=== PATIENT | female | born 2005 | race Caucasian/White ===

== ENCOUNTER 2025-10-27 15:40 | Emergency (ER) | payer OTHER, SELFPAY ==
--- OUTSIDE RECORDS SUMMARY | 2025-10-26 20:37 | XMS_ITS | Continuity of Care Document ---
Author Organization [facility] Address Unknown Care Team Providers Care Sheet Rock Sander Name Role Phone Jadiel Garza PA-C Primary Care Physician Encounter [facility] [id number] Date(s): 10/26/25 - 10/26/[address] [address] Encounter Diagnosis Vaginal bleeding in patient at less than 20 weeks gestation(Discharge Diagnosis) - 10/26/25 Discharge Disposition: Home Attending Physician: Ron Torres MD Admitting Physician: Ron Torres MD Encounter Type: Emergency Allergies, Adverse Reactions, Alerts No Known Allergies Treatment Plan Extracted from:Title:Supervising Physician Addendum *EDAuthor:Ron Torres MD Date:10/26/25 Impression and Plan Diagnosis Vaginal bleeding in patient at less than 20 weeks gestation (AIE63-FN O20.9, Discharge, Medical) Plan Condition: Stable. Disposition: Discharged: Time 10/26/2025 20:28:00, to home. Patient was given the following educational materials: Bleeding During Your First Trimester: What to Know, Ambw-ac-Iurw, Bleeding During Your First Trimester: What to Know, Upeq-kt-Gzuf. Follow up with: ; Follow up with specialist Within 2 to 4 days Reviewed discharge care instruction. Continue with therapy as outlined by Dr. Torres. Contact OB for follow-up. Return to ER for any worsening symptoms especially any symptom that concerns you. . Counseled: Patient, Regarding diagnosis, Regarding diagnostic results, Regarding treatment plan, Regarding prescription, Patient indicated understanding of instructions. Extracted from:Title:ED Provider NoteAuthor:Noni Jenkins FNPDate: 10/26/25 Orders: ABORh, Blood, Stat collect, 10/26/25 19:29:00 EST, Stop date 10/26/25 19:29:00 EST, Lab Collect, (Ordered) Antibody Screen Gel, Blood, 10/26/25 19:29:00 EST, Stat collect, Stop date 10/26/25 19:29:00 EST, Lab Collect, (Ordered) Extra Blue, Blood, Collected, Stat collect, 10/26/25 19:50:23 EST, by NEPTALI, Stop date 10/26/2519:50:00 EST, Lab Collect, Venous Draw, Yes, (Ordered) Test Serum 1, Blood, Stat collect, 10/26/25 19:29:00 EST, Stop date 10/26/25 19:29:00 EST, Lab Collect, (Ordered) RhIG., Blood, 10/26/25 19:29:00 EST, Stat collect, Stop date 10/26/25 19:29:00 EST, Lab Collect, Hold Until Collected, (Ordered) Functional Status 10/26/25 ED Note - Physician Patient: LOLY ROBERTS Age: 19 years Sex: FEMALE : 2005 Associated Diagnoses: Vaginal bleeding in patient at less than 20 weeks gestation Author: Ron Torres MD Basic Information Additional information: Chief Complaint from Nursing Triage Note : Chief Complaint 10/26/2025 18:46 EST Chief Complaint Pt. C/O intermitted abdominal cramping and dark red blood whenshe wipes after going to the bathroom . History of Present Illness I supervised APC role in patient care. Case discussed with APC. Evaluation and management service: I agree with evaluation and management decisions made in the patient's care. Result interpretation: I agree with the study interpretation in this patient's care. I agree with the documentation. I supervised APC role in patient care. Case discussed with APC. Evaluation and management service: I agree with evaluation and management decisions made in the patient's care. Result interpretation: I agree with the study interpretation in this patient's care. In essence, 19-year-old female, 1 para 0, approximately 8 weeks along with gestation, previous ultrasound showed initial . Spotting today. No pain with urination. No specific pain abdomen or pelvic area. No recent illness. Urinalysis obtained. Red blood cell noted in the urine, no signs of infectious process. Rh ABO obtained. Beta-hCG obtained. Patient is A+ blood type. No RhoGAM needed Beta-hCG pending. Finding discussed with patient Presently, spotting, nonspecific. Recommend recheck in 2 to 4 days with repeat hCG. I have discussed with patient and relevant parties accompanying patient regarding presentation to ER, medical evaluations, results and recommended treatment plans as outlined. Return to ER criterias.Follow up instructions. 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 Health Status Allergies: Allergic Reactions (Selected) No known allergies. Past Medical/ Family/ Social History Medical history: Resolved tubes in ears ([id number]): Resolved.. Surgical history: No active procedure history items have been selected or recorded.. Family history: No family history items have been selected or recorded.. Social history: Social & Psychosocial Habits Alcohol 10/26/2025 Alcohol Use: Never Substance Use 10/26/2025 Substance use: Never Tobacco 10/26/2025 Smoking tobacco use: Never tobacco user Electronic Cigarette/Vaping 10/26/2025 Electronic Cigarette Use: Never . Problem list: Active Problems (1) No Chronic Problems . Physical Examination Vital Signs Vital Signs 10/26/2025 18:46 EST Temperature Oral 37 DegC Heart Rate Monitored 91 bpm Respiratory Rate 20 br/min Systolic Blood Pressure 155 mmHg HI Diastolic Blood Pressure 77 mmHg Mean Arterial Pressure, Cuff 103 mmHg HI SpO2 99 % Oxygen Therapy Room air . Measurements 10/26/2025 18:46 EST Height 158 cm Weight 90.72 kg Weight Dosing 90.720 kg Body Mass Index Measured 36.34 kg/m2 . Basic Oxygen Information 10/26/2025 18:46 EST SpO2 99 % Oxygen Therapy Room air . Medical Decision Making Orders Launch Orders Laboratory: hCG Quantitative (Order): Blood, Stat collect, 10/26/2025 20:27 EST, Lab Collect. Impression and Plan Diagnosis Vaginal bleeding in patient at less than 20 weeks gestation ([id number] O20.9, Discharge, Medical) Plan Condition: Stable. Disposition: Discharged: Time 10/26/2025 20:28:00, to home. Patient was given the following educational materials: Bleeding During Your First Trimester: What to Know, Ngda-cl-Bxua, Bleeding During Your First Trimester: What to Know, Lqux-rg-Ltco. Follow up with: ; Follow up with specialist Within 2 to 4 days Reviewed discharge care instruction. Continue with therapy as outlined by Dr. Torres. Contact OB for follow-up. Return to ER for any worsening symptoms especially any symptom that concerns you. . Counseled: Patient, Regarding diagnosis, Regarding diagnostic results, Regarding treatment plan, Regarding prescription, Patient indicated understanding of instructions. 10/26/25 History of Fall in Last 3 Months [facility] Functional Status Assessment AssessmentAssessment ComponentResultEffective DateFall risk total [Rock Fall Scale]15112/27/24Intravenous apparatus [Rock Fall Scale]No10/26/25Gait [Rock Fall Scale]Normal, bedrest, jqywtbll08/27/25Ambulatory aid [Rock Fall Scale] None, bedrest, wheelchair, nurse10/26/25History of falling; immediate or within 3 months [Rock Fall Scale]No10/26/25Secondary diagnosis is solbdwsTbp84/27/25 Mental status [Rock Fall Scale]Oriented to own bucizad02/27/25 Medications No Known Medications Mental Status 10/26/25 Level of ConsciousnessAlert Mental Status Assessment AssessmentAssessment ComponentResultEffective DateGlasgow coma scaleGlasgow coma score hopkqaPdcmcbag35/27/25 Mental Status Assessment AssessmentAssessment ComponentResultEffective DateGlasgow coma scaleGlasgow coma score motorObeys /27/25 Mental Status Assessment AssessmentAssessment ComponentResultEffective DateGlasgow coma scaleGlasgow coma score eye xegqvyeLpjqmizcsqb20/27/25 Mental Status Assessment AssessmentAssessment ComponentResultEffective DateGlasgow coma lzlbh6437/27/25 Mental Status Assessment AssessmentAssessment ComponentResultEffective DateGlasgow coma score total15 10/26/25Glasgow coma score motorObeys vuscgkub49/27/25Glasgow coma score verbal Ahdzrzhc60/27/25Glasgow coma score eye gnpmmdqBjsuybiyrdo29/27/25 Problem List No Known Problems Results Laboratory List ExjoTbmeTOMTk13/27/25Pregnancy Test Serum Extra Blue10/26/25Extra Green 10/26/25Extra Lav10/26/25Extra Red10/26/25hCG Rkgbqlbvchfo91/27/25UA Depnftnlevm394/27/25Urinalysis with Culture, if indicated Standard (UA w Culture if Ind Standard)10/26/25 Most recent to oldest [Reference Range]:1234Urine SourceClean Catch (10/26/25 7:07 PM)UA Amorph.1+ (10/26/25 7:07 PM)Tube CollectedYes *NA* (10/26/25 7:50 PM)Yes *NA* (10/26/25 7:50 PM)Yes *NA* (10/26/25 7:50 PM)Yes *NA* (10/26/25 7:50 PM)ABORh InterpA POS *Unknown* (10/26/25 7:50 PM)UA BacteriaTrace (10/26/25 7:07 PM)UA Blood [NEGATIVE]LARGE *ABN* (10/26/25 7:07 PM)UA ColorYellow (10/26/25 7:07 PM)UA GlucoseNEGATIVE (10/26/25 7:07 PM)UA KetonesNEGATIVE (10/26/25 7:07 PM)UA Leuk Est [NEGATIVE]NEGATIVE (10/26/25 7:07 PM)UA Nitrite [NEGATIVE]NEGATIVE (10/26/25 7:07 PM)UA Protein [NEGATIVE]NEGATIVE (10/26/25 7:07 PM)UA OGI71-51 (10/26/25 7:07 PM)UA Squam EpiModerate (10/26/25 7:07 PM)UA Urobilinogen [0.2-1.0 mg/dL]0.2 mg/dL (10/26/25 7:07 PM)UA WBC0-2 (10/26/25 7:07 PM)UA pH [5-8]7.0 (10/26/25 7:07 PM)UA Spec Grav [1.001-1.035]1.010 (10/26/25 7:07 PM)UA Clarity [CLEAR]CLEAR (10/26/25 7:07 PM)Micro?Indicated *NA* (10/26/25 7:07 PM)Culture?Not Indicated *NA* (10/26/25 7:07 PM) Test Serum QualPositive (10/26/25 7:50 PM)hCG Quantitative [<=4.20 munit/mL]>1000.00 munit/mL *HI* (10/26/25 7:50 PM)UA BilirubinNEGATIVE (10/26/25 7:07 PM) Vital Signs Most recent to oldest [Reference Range]:1Xmgueq079 cm (10/26/25 6:46 PM)Tjywxk01.72 kg (10/26/25 6:46 PM)Weight Plqcip42.720 kg (10/26/25 6:46 PM)Body Mass Index Suajpytv93.34 kg/m2 (10/26/25 6:46 PM)Temperature Oral [35.8-37.3 DegC]37 DegC (10/26/25 6:46 PM)Heart Rate Monitored [60-100 bpm]91 bpm (10/26/25 6:46 PM)Respiratory Rate [14-20 br/min]20 br/min (10/26/25 6:46 PM)Blood Pressure [90-120/60-80 mmHg]155/77mmHg *HI* (10/26/25 6:46 PM)Mean Arterial Pressure, Cuff [65-100 mmHg]103 mmHg *HI* (10/26/25 6:46 PM)SpO2 [95 %]99 % (10/26/25 6:46 PM)Oxygen TherapyRoom air (10/26/25 6:46 PM) Social History Social History TypeResponseTobaccoNever tobacco user Tobacco Use:. Sex FemaleSex RepresentationFemale (finding) Social Determinants of Health Assessment AssessmentAssessment ComponentResultEffective DatePatient Health Questionnaire 2 item (PHQ-2) total score [Reported]Feeling down, depressed, or hopeless in last 2 weeksNot at all10/26/25Little interest or pleasure in doing things in last 2 weeksNot at all10/26/25 Hospital Discharge Instructions Patient Education 10/26/2025 19:29:02 Bleeding During Your First Trimester: What to Know, Cyyz-yg-Qxnd Bleeding During Your First Trimester: What to Know A small amount of bleeding from the vagina is common during early . This kind of bleeding is also called spotting. Sometimes the bleeding is normal and does not cause problems. At other times, though, bleeding may be a sign of something serious. Normal bleeding in can happen: ??? When the fertilized egg attaches itself to your uterus. ??? When blood vessels change because of the . ??? When you have pelvic exams. ??? When you have sex. Abnormal bleeding can happen: ??? When you have an infection. ??? When you have growths in your womb. ??? If you're having a miscarriage or at risk of having one. ??? If you have other problems in your . Tell your doctor right away about any bleeding from your vagina. Follow these instructions at home: Watch your bleeding ??? Try to know what causes your bleeding. Ask yourself these questions: ??? Does the bleeding start on its own? Does the bleeding start after something is done, such as sex or a pelvic exam? Write the things you see about your bleeding. For example: ??? Does the bleeding flow freely without stopping? Or, does it start and stop, and then start again? Is the bleeding heavy or light? How many pads do you use in a day? How much blood is in them? Tell your doctor if your bleeding becomes worse, or if you pass tissue. They may want to see the tissue. Activity ??? Do not have sex until your doctor says that it's safe. ??? Ask for help with everyday activities. ??? Ask what things are safe for you to do at home. Ask when you can go back to work or school. Medicines ??? Take your medicines only as told. ??? Do not take aspirin unless your doctor says you can. Aspirin can cause bleeding. General instructions ??? Do not use tampons. ??? Do not douche. ??? Keep all follow-up visits. Contact a doctor if: ??? You have vaginal bleeding at any time while you are . ??? You have cramps. ??? You have a fever or chills. Get help right away if: ??? You have very bad cramps in your back or belly. ??? Your bleeding gets worse. ??? You pass large clots or a large amount of tissue. ??? You feel light-headed. ??? You feel weak. ??? You faint. ??? You are leaking fluid from your vagina. ??? You have a gush of fluid from your vagina. This information is not intended to replace advice given to you by your health care provider. Make sure you discuss any questions you have with your health care provider. Document Revised: 10/05/2024 Document Reviewed: 10/05/2024 [place] Patient Education ?? 2024 [employer]. Follow Up Care 10/26/2025 18:42:11 With:Follow up with specialist Address:Unknown When:2 to 4 days Comments:Reviewed discharge care instruction.Continue with therapy as outlined by Dr. Torres.Contact OB for follow-up.Return to ER for any worsening symptoms especially any symptom that concerns you. Physician Emergency department Note * Ron Torres MD: PERFORM, SIGN, VERIFY Event Display: ED Note - Physician Authored Date: [id number] Patient: LOLY ROBERTS Age: 19 years Sex: FEMALE : 2005 Associated Diagnoses: Vaginal bleeding in patient at less than 20 weeks gestation Author: Ron Torres MD Basic Information Additional information: Chief Complaint from Nursing Triage Note : Chief Complaint 10/26/2025 18:46 EST Chief Complaint Pt. C/O intermitted abdominal cramping and dark red blood when she wipes after going to the bathroom . History of Present Illness I supervised APC role in patient care. Case discussed with APC. Evaluation and management service: I agree with evaluation and management decisions made in the patient's care. Result interpretation: I agree with the study interpretation in this patient's care. I agree with the documentation. I supervised APC role in patient care. Case discussed with APC. Evaluation and management service: I agree with evaluation and management decisions made in the patient's care. Result interpretation: I agree with the study interpretation in this patient's care. In essence, 19-year-old female, 1 para 0, approximately 8 weeks along with gestation, previous ultrasound showed initial . Spotting today. No pain with urination. No specific pain abdomen or pelvic area. No recent illness. Urinalysis obtained. Red blood cell noted in the urine, no signs of infectious process. Rh ABO obtained. Beta-hCG obtained. Patient is A+ blood type. No RhoGAM needed Beta-hCG pending. Finding discussed with patient Presently, spotting, nonspecific. Recommend recheck in 2 to 4 days with repeat hCG. I have discussed with patient and relevant parties accompanying patient regarding presentation to ER, medical evaluations, results and recommended treatment plans as outlined. Return to ER criterias.Follow up instructions. 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 Health Status Allergies: Allergic Reactions (Selected) No known allergies. Past Medical/ Family/ Social History Medical history: Resolved tubes in ears ([id number]): Resolved.. Surgical history: No active procedure history items have been selected or recorded.. Family history: No family history items have been selected or recorded.. Social history: Social & Psychosocial Habits Alcohol 10/26/2025 Alcohol Use: Never Substance Use 10/26/2025 Substance use: Never Tobacco 10/26/2025 Smoking tobacco use: Never tobacco user Electronic Cigarette/Vaping 10/26/2025 Electronic Cigarette Use: Never . Problem list: Active Problems (1) No Chronic Problems . Physical Examination Vital Signs Vital Signs 10/26/2025 18:46 EST Temperature Oral 37 DegC Heart Rate Monitored 91 bpm Respiratory Rate 20 br/min Systolic Blood Pressure 155 mmHg HI Diastolic Blood Pressure 77 mmHg Mean Arterial Pressure, Cuff 103 mmHg HI SpO2 99 % Oxygen Therapy Room air . Measurements 10/26/2025 18:46 EST Height 158 cm Weight 90.72 kg Weight Dosing 90.720 kg Body Mass Index Measured 36.34 kg/m2 . Basic Oxygen Information 10/26/2025 18:46 EST SpO2 99 % Oxygen Therapy Room air . Medical Decision Making Orders Launch Orders Laboratory: hCG Quantitative (Order): Blood, Stat collect, 10/26/2025 20:27 EST, Lab Collect. Impression and Plan Diagnosis Vaginal bleeding in patient at less than 20 weeks gestation (ZAB43-ED O20.9, Discharge, Medical) Plan Condition: Stable. Disposition: Discharged: Time 10/26/2025 20:28:00, to home. Patient was given the following educational materials: Bleeding During Your First Trimester: What to Know, Hibw-cm-Kgqo, Bleeding During Your First Trimester: What to Know, Qfrk-wi-Qwdf. Follow up with: ; Follow up with specialist Within 2 to 4 days Reviewed discharge care instruction. Continue with therapy as outlined by Dr. Torres. Contact OB for follow-up. Return to ER for any worsening symptoms especially any symptom that concerns you. . Counseled: Patient, Regarding diagnosis, Regarding diagnostic results, Regarding treatment plan, Regarding prescription, Patient indicated understanding of instructions. [Electronically Signed on: 10/26/2025 21:01 EST] Ron Torres MD [Verified on: 10/26/2025 21:01 EST] Ron Torres MD * Noni JenkinsP: PERFORM Event Display: ED Note - Physician Authored Date: [id number] LOLY ROBERTS :2005 Age:19 years Sex:FEMALE Registration Date:10/26/2025 Primary Care Physician: Jadiel Garza PA-C Basic Information Time Seen: Noni Jenkins ??10/26/2025 18:43 Chief Complaint Pt. C/O intermitted abdominal cramping and dark red blood when she wipes after going to the bathroom History Of Present Illness: 19-year-old female?? who reports being??8 weeks and 2 days presents emergency department today for evaluation??of vaginal bleeding. ??Patient tells me today she started to have some midline cramping??and then is also having??red?? discharge ??when wiping after going to the bathroom. ?? Patient tells me she has not been saturating any pads. ??She tells me she has not been noting any spotting in her urine.?? Patient tells me she has seen an OB. ??Patient??tells me that she had an ultrasound at??5 weeks and 6 days which showed a viable intrauterine .?? Patient denies any fever or chills. ??Patient denies dysuria. ??Patient denies??any chest pain shortness of breath.?Patient is unsure of her blood type. ??Patient??tells me that her OB is in[place].?? Patient rates her cramping at a 5/10 on the pain scale.?? For these reasons patient presents emergency department today. ?? Review of system is negative except what is mentioned above. Physical Exam Vitals & Measurements T:??37?C??(Oral)?? HR:??91??(Monitored)?? RR:??20?? BP:??155/77?? SpO2:??99%?? HT:??158??cm?? WT:??90.72??kg?? BMI:??36.34?? O2 Therapy:??Room air?? General: Alert and oriented, well nourished,?No??acute distress?? Eye:??PERRL, EOMI,?Normal?? conjunctiva?? Lungs:?Respiration:??Non-Labored Heart:?Normal?rate,?? Abdomen: Soft, non-tender, non-distended,?? Skin: Skin is warm, dry and pink,?No?? rashes,?No?? lesions?? Neurologic: Awake, alert and oriented X4, CN II-XII intact?? Psychiatric: Cooperative, appropriate mood and affect Medical Decision Making: Patient seen examined emergency department; patient is healthy nontoxic in appearance and does not appear to be acute distress. ??Patient is neurologically intact without any focal deficits. ??Respirations are even unlabored, skin is warm dry no diaphoresis noted. ??Heart regular rate and rhythm without a murmur appreciated. ??Abdomen soft, nontender. ?? Patient I discussed treatment options. ??We discussed that is reassuring that she had an??ultrasound showing an intrauterine viable .?? We discussed that it can be normal to have bleeding and spotting in the first trimester.?? We discussed that??spotting in the first trimester??is normal.?? We discussed??treatment plan. ??Will obtain a UA. ??If UA is positive for blood we will treat as aUTI.?? We discussed that if her??UA is negative for blood we will obtain??Rh to detainment the needfor RhoGAM.?? Patient is in agreement with this plan and assessment. ?? UA is positive??for large amount of blood but is negative for signs of infection. ?? Will order RhoGAM and beta quant,??and updated??on urinalysis salts and additional blood work. ?? 1999??-patient signed out to Dr. Torres??with disposition pending laboratory results. ? Assessment/Plan Orders: ABORh, Blood, Stat collect, 10/26/25 19:29:00 EST, Stop date 10/26/25 19:29:00 EST, Lab Collect, (Ordered) Antibody Screen Gel, Blood, 10/26/25 19:29:00 EST, Stat collect, Stop date 10/26/25 19:29:00 EST, Lab Collect, (Ordered) Extra Blue, Blood, Collected, Stat collect, 10/26/25 19:50:23 EST, by NEPTALI, Stop date 10/26/2519:50:00 EST, Lab Collect, Venous Draw, Yes, (Ordered) Test Serum 1, Blood, Stat collect, 10/26/25 19:29:00 EST, Stop date 10/26/25 19:29:00 EST, Lab Collect, (Ordered) RhIG., Blood, 10/26/25 19:29:00 EST, Stat collect, Stop date 10/26/25 19:29:00 EST, Lab Collect, Hold Until Collected, (Ordered) Problem List/Past Medical History Ongoing No chronic problems Historical tubes in ears Allergies No known allergies Social History Alcohol Alcohol Use:Never Electronic Cigarette/Vaping Electronic Cigarette Use:Never Substance Use Substance use:Never Tobacco Smoking tobacco use:Never tobacco user Lab Results Macroscopic?? LATEST RESULTS?? UA Color?? 10/26/25 19:07?? Yellow?? UA Clarity?? 10/26/25 19:07?? CLEAR?? UA Glucose?? 10/26/25 19:07?? NEGATIVE?? UA Ketones?? 10/26/25 19:07?? NEGATIVE?? UA Spec Grav?? 10/26/25 19:07?? 1.010?? UA Blood?? 10/26/25 19:07?? LARGE Abnormal?? UA pH?? 10/26/25 19:07?? 7.0?? UA Protein?? 10/26/25 19:07?? NEGATIVE?? UA Urobilinogen?? 10/26/25 19:07?? 0.2?? UA Nitrite?? 10/26/25 19:07?? NEGATIVE?? UA Leuk Est?? 10/26/25 19:07?? NEGATIVE?? UA Bilirubin?? 10/26/25 19:07?? NEGATIVE?? Urine Source?? 10/26/25 19:07?? Clean Catch?? Micro??? 10/26/25 19:07?? Indicated? Microscopic?? LATEST RESULTS?? Culture??? 10/26/25 19:07?? Not Indicated?? UA WBC?? 10/26/25 19:07?? 0-2?? UA RBC?? 10/26/25 19:07?? 20-30?? UA Squam Epi?? 10/26/25 19:07?? Moderate?? UA Bacteria?? 10/26/25 19:07?? Trace?? UA Amorph.?? 10/26/25 19:07?? 1+? Misc Lab Order?? LATEST RESULTS?? Tube Collected?? 10/26/25 19:50?? Yes? [Electronically Signed on: 10/26/2025 19:53 EST] Noni Jenkins [Verified on: 10/26/2025 19:53 EST] Noni JenkinsP Patient Care team information Care Team Personnel Name: Jadiel Garza PA-C Position: [facility] [employer] Member Role: Primary Care Physician Address: [address] [place] [address] Telecom: Care Team Related Persons Name: ANA PAULA ROBERTS Name: ANA PAULA ROBERTS Name: DELONTE MAN Name: DELONTE MAN Insurance Providers Guarantor name: [facility] Plan Information #: 1 Payer: [employer] Payer Identifier: NA Member Number: [id number] Group Number: [id number] Subscriber Identifier: [id number] Relationship to Subscriber: father Coverage Type: [employer]IVATE [employer] INSURANCE Coverage Verification Date: 25 Telecom: [phone] Address: [address] Health Plan Information #: 2 Payer: [employer] Payer Identifier: NA Member Number: [id number] Group Number: [id number] Subscriber Identifier: [id number] Relationship to Subscriber: mother Coverage Type: PRIVATE HEALTH INSURANCE Coverage Verification Date: 25 Telecom: [phone] Address: [address]
[2025-10-27 15:52] VITALS: BP 152/102; PULSE 102; TEMP 37.1; O2SAT 97; BMI 33.3
--- OUTSIDE RECORDS SUMMARY | 2025-10-27 17:04 | XMS_ITS | Clinical Summary ---
Author Organization [employer] [facility] tem Address [facility] [id number] [address] [place] [address] Care Team Providers Care Contracting Manager Name Role Phone Jadiel John Primary Care Provider +1- [phone] Allergies No known active allergies Social History Tobacco UseTypesPacks/DayYears UsedDateSmoking Tobacco: Never AssessedChildcare AnswerDate PijvftohIunpgrorkXnrquzu90/10/2019EmploymentAnswerDate Recorded ZtfmpzopedLoiheee16/10/2019Purpose - LifeAnswerDate RecordedPurpose and direction in nlmpAuwosmq47/10/2021CommentsNoSex and Gender Information ValueDate RecordedSex Assigned at BirthNot on fileLegal NzsUxlehy81/04/2015 3:27 PM EDTGender IdentityNot on fileSexual OrientationNot on file Last Filed Vital Signs Vital SignReadingTime TakenCommentsBlood Pressure--Pulse--Temperature-- Respiratory Rate--Oxygen Saturation--Inhaled Oxygen Concentration--Cetvtq51 kg (216 lb)09/29/2018 2:02 PM ESTHeight--Body Mass Index-- Plan of Treatment Not on file Medical Devices Not on file Insurance Care Teams Team MemberRelationshipSpecialtyStart DateEnd Date Jadiel John DO [address] [place] [address] PCP - Xwcaulq54/30/18
--- OUTSIDE RECORDS SUMMARY | 2025-10-27 17:04 | XMS_ITS | Clinical Summary ---
Author Organization [facility] Address [address] [place] [address] Care Team Providers Care Meterman Name Role Phone Unavailable Primary Care Provider Unavailabl e Social History Tobacco UseTypesPacks/DayYears UsedDateSmoking Tobacco: Never Assessed CommentsUnknownSex and Gender InformationValueDate RecordedSex Assigned at Not on fileLegal XnwHxjkis73/30/2022 12:28 AM EDTGender IdentityNot on file Sexual OrientationNot on file Plan of Treatment Not on file
--- OUTSIDE RECORDS SUMMARY | 2025-10-27 17:04 | XMS_ITS | Clinical Summary ---
Author Organization [facility] Address [address], [address] [place] [address] Care Team Providers Care Senior Mortgage Loan Processor Name Role Phone YadiraJadiel bhaena Manjula DO Primary Care Provider +1- [phone] Allergies No known active allergies Medications MedicationSigDispense QuantityRefillsLast FilledStart DateEnd DateStatus docusate sodium (COLACE) 100 MG capsule Take 1 capsule by mouth 2 times daily as needed for Constipation 60 capsule 02/14/2019Active naproxen (NAPROSYN) 250 MG tablet Take 1 tablet by mouth 2 times daily (with meals) 60 tablet 02/14/2019Active Active Problems ProblemNoted DateDiagnosed DateFemoral acetabular boqsjjeddtf97/17/2019 Family History RelationNameStatusCommentsFatherAliveMotherAlive Social History Tobacco UseTypesPacks/DayYears UsedDateSmoking Tobacco: NeverSmokeless Tobacco: NeverAlcohol UseStandard Drinks/WeekCommentsNo0 (1 standard drink = 0.6 oz pure alcohol)CommentsNoSex and Gender InformationValueDate RecordedSex Assigned at BirthNot on fileLegal JbsCdiwum58/10/2013 9:40 PM ESTGender Identity Not on fileSexual OrientationNot on file Last Filed Vital Signs Vital SignReadingTime TakenCommentsBlood Uujvmmxo957/77004/13/2019 9:39 AM EDT Mlbco214404/13/2019 9:39 AM QAUUfhfdyqeyuj60.7 ??C (98.1 ??F)02/15/2019 6:11 AM EDTRespiratory Tklq148304/13/2019 9:39 AM EDTOxygen Xtxwrcgpbw48%02/15/2019 6:11 AM EDTInhaled Oxygen Concentration--Zdiayj56.3 kg (208 lb)04/13/2019 9:39 AM EDT Szqjez440.1 cm (5' 5 )04/13/2019 9:39 AM EDTBody Mass Index34.61004/13/2019 9:39 AM EDT Plan of Treatment Not on file Medical Devices ImplantedTypeAreaManufacturerDevice IdentifierShelf Expiration DateModel / Serial / LotAnchor Pushlock Hip Shrt 2.9x12.5mm Implanted:Qty: 2 on 02/14/2019 by [facility]FastenerRight: HipARTHREX INC-[id number] / / [id number] Insurance Advance Directives * Full Code (Latest Code Status on File) Date ActivatedDate InactivatedComments02/14/2019 6:40 PM02/15/2019 2:07 PM Care Teams Team MemberRelationshipSpecialtyStart DateEnd Date Jadiel John DO [facility]
--- OUTSIDE RECORDS SUMMARY | 2025-10-27 17:04 | XMS_ITS | Clinical Summary ---
Author Organization [facility] Address [address] [place] [address] Care Team Providers Care Pipeline Gang Supervisor Name Role Phone Jadiel John DO Primary Care Provider +1- [phone] Social History Tobacco UseTypesPacks/DayYears UsedDateSmoking Tobacco: Never Assessed CommentsUnknownSex and Gender InformationValueDate RecordedSex Assigned at Not on fileLegal MyrHdghyr41/15/2023 6:45 PM EDTGender IdentityNot on fileSexual OrientationNot on file Last Filed Vital Signs Vital SignReadingTime TakenCommentsBlood Afbryvht758/7810/04/2018 12:00 PM EST Pulse--Temperature--Respiratory Rate--Oxygen Saturation--Inhaled Oxygen Concentration--Ehrwrd89 kg (216 lb)10/04/2018 12:00 PM RZZAlijrg880.1 cm (5' 5 ) 10/04/2018 12:00 PM ESTBody Mass Index35.9410/04/2018 12:00 PM EST Plan of Treatment DateTypeDepartmentCare Team (Latest Contact Info)Xgyldybwmyg05/31/2025 8:30 AM ESTAncillary Procedure [facility] [address] [place] [address] [place] [address] 10/30/2025 9:00 AM ESTInitial [facility] [address] [place] [address] Health MaintenanceDue DateLast DoneCommentsInfluenza Vaccine (#1)07/01/2025 Pneumococcal Vaccine: Pediatrics (0 to 5 Years) and At-Risk Patients (6 to 64 Years)Aged OutNo longer eligible based on patient's age to complete this topic Insurance Care Teams Team MemberRelationshipSpecialtyStart DateEnd Date Jadiel John DO [address] [address] PCP - GeneralFamily Medicine03/08/23
--- NOTE | 2025-10-27 19:26 | ED_ITS ---
HPI HPI - General Adult General Chief complaint: Vaginal Bleeding Stated complaint: 8 WEEKS PREG/ BLEEDING Time Seen by Provider: 10/27/25 15:45 Source: patient Mode of arrival: walk-in Limitations: no limitations History of Present Illness HPI narrative: Patient is a 19-year-old female, currently 8 weeks gestation, presenting to the emergency department for evaluation of vaginal bleeding. Patient states she started spearing seeing mild amount of vaginal bleeding last night. She was seen at an outside hospital and discharged home with a diagnosis of threatened . Since her discharge, she has been having worsening bleeding and cramping in the lower part of her abdomen. She states she is not having passage of clots. She has gone through 1 pad throughout the day today. She denies symptoms of anemia such as lightheadedness, dizziness, shortness of breath, chest pain, or palpitations. She did have an ultrasound for this when she was 5 weeks gestation. They did confirm intrauterine at that time. This is her first , no history of ectopic . Related Data Home Medications ?Medication ?Instructions ?Recorded ?Confirmed vits no.133-ferrous tab PO 10/27/25 fumarate 28 mg-folic acid 800 mcg tablet () Allergies Allergy/AdvReac Type Severity Reaction Status Date / Time No Known Drug Allergies Allergy Verified 10/27/25 15:51 Opioid HPI Opioid Management Most Recent Opioid Data: Last Pain Scale 8 Today, 15:52 Review of Systems ROS Status of ROS 10 or more systems reviewed and unremark able except as noted in history and below PFSH PFSH Social History Little interest or pleasure in doing things: not at all Feeling down, depressed, or hopeless: not at all Exam Narrative Exam Narrative: CONSTITUTIONAL: Well-appearing, answering questions and following commands appropriately SKIN: Was warm and dry. EYES: Sclerae white. No conjunctiva pallor. EARS, NOSE, THROAT: Moist oral mucosa. RESPIRATORY: Clear to auscultation bilaterally, no wheezes, crackles, or stridor, no use of accessory muscles CARDIOVASCULAR: Normal rate and regular rhythm. There is no S3, S4, murmur, rub. GASTROINTESTINAL: Abdomen is soft, nontender, and nondistended. No rebound tenderness or guarding. MUSCULOSKELETAL: No peripheral edema. NEUROLOGIC: Patient is awake and alert. Facies were symmetrical. Constitutional Vital Signs, click to edit/add: Last Vital Signs Temp 98.8 F 12/28/25 15:52 Pulse 102 H 10/27/25 15:52 Resp 16 10/27/25 15:52 BP 152/102 H 10/27/25 15:52 Pulse Ox 97 10/27/25 15:52 O2 Del Method Room Air 10/27/25 15:52 Course Vital Signs Vital signs: Vital Signs Temperature 98.8 F 10/27/25 15:52 Pulse Rate 102 H 10/27/25 15:52 Respiratory Rate 16 10/27/25 15:52 Blood Pressure 152/102 H 10/27/25 15:52 Pulse Oximetry 97 10/27/25 15:52 Oxygen Delivery Method Room Air 10/27/25 15:52 Temperature 98.8 F 10/27/25 15:52 Pulse Rate 102 H 10/27/25 15:52 Respiratory Rate 16 10/27/25 15:52 Blood Pressure 152/102 H 10/27/25 15:52 Pulse Oximetry 97 10/27/25 15:52 Oxygen Delivery Method Room Air 10/27/25 15:52 Medical Decision Making MDM Narrative Medical decision making narrative: Patient is a healthy 19-year-old female, currently 8 weeks gestation, presenting to the emergency department for evaluation of vaginal bleeding over the last 24 hours. Patient obtained an ultrasound 3 weeks ago, and an intrauterine was confirmed. She presented with laboratory studies from yesterday that showed Apositive blood. Ultrasound showed a heart rate of 156 at that time. Her vital signs on arrival today are within normal limits. She is afebrile and hemodynamically stable. She has a benign physical examination with no significant amount of active vaginal bleeding. She has no symptoms of anemia. Bedside ultrasound performed by myself demonstrated no obvious cardiac activity. There is echogenic material within the uterus, likely blood products. Beta-hCG was obtained which was elevated to 2725. I do believe the patient is stable for discharge. She had an official ultrasound of 5 weeks gestation confirming IUP. Her presentation is likely consistent with an in process. She has an appointment with her FORMING MACHINE ADJUSTER in 3 days, instructed to maintain this appointment. Return precautions were given including any new or concerning symptoms, or bleeding through more than 2 pads per hour for multiple hours. Patient understands and agrees the plan. FINAL IMPRESSION: #Acute vaginal bleeding in first trimester , likely spontaneous DISPOSITION: Discharged home CONDITION: Good Lab Data Lab results reviewed: Yes I reviewed the patient's lab results Labs: Lab Results 10/27/25 Range/Units 16:19 HCG, Quant 2725 mIU/mL Discharge Plan Discharge Chief Complaint: Vaginal Bleeding Clinical Impression: in first trimester Patient Disposition: Home, Self-Care Time of Disposition Decision: 16:35 Condition: Good Mode of Transportation: Private Vehicle Prescriptions / Home Meds: No Action 28-800 mg-mcg tablet PO Print Language: Maltese Instructions: Miscarriage (ED) Discharge Date/Time: 10/27/25 17:02
== END 2025-10-27 17:02 | disposition home or self-care (01) ==
LOC: ER 17:01
PROVIDERS: Emergency Provider Student in an Organized Health Care Education/Training Program
DX: O20.9 Hemorrhage in early pregnancy, unspecified (principal)
CPT/HCPCS: 36415; 84702; 99283